=== PATIENT | male | born 1995 | race Caucasian/White ===

== ENCOUNTER 2020-04-23 11:10 | Inpatient (IN) | payer OTHER, SELFPAY ==
[~2020-04-23] VITALS: Ht 180.3 cm; Wt 90.7 kg
[2020-04-23 12:03] LABS: HEMATOCRIT 47.3 % (42.0-52.0); HEMOGLOBIN 15.2 g/dl (13.5-17.5); MEAN CORPUSCULAR HEMOGLOBIN 30.6 pg (27.0-33.0); MEAN CORPUSCULAR HGB CONC 32.1 g/dl (32.0-36.5); MEAN CORPUSCULAR VOLUME 95.2 fl (80.0-96.0); PLATELET COUNT, AUTOMATED 600 10^3/uL (150-450); RED BLOOD COUNT 4.97 10^6/uL (4.30-6.10); WHITE BLOOD COUNT 9.2 10^3/uL (4.0-10.0)
[2020-04-23 12:34] LABS: AMPHETAMINES LEVEL URINE NEGATIVE (NEGATIVE); BARBITURATES URINE NEGATIVE (NEGATIVE); BENZODIAZEPINES URINE NEGATIVE (NEGATIVE); CANNABINOIDS URINE NEGATIVE (NEGATIVE); COCAINE METABOLITE URINE NEGATIVE (NEGATIVE); METHADONE URINE NEGATIVE (NEGATIVE); OPIATES URINE NEGATIVE (NEGATIVE); PHENCYCLIDINE URINE NEGATIVE (NEGATIVE)
[2020-04-23 12:39] LABS: ACETAMINOPHEN LEVEL < 2.0 UG/ML (10.0-30.0); ALBUMIN 4.8 GM/DL (3.2-5.2); ALT/SGPT 122 U/L (12-78); BILIRUBIN,DIRECT 0.1 MG/DL (0.0-0.2); BILIRUBIN,TOTAL 0.4 MG/DL (0.2-1.0); BLOOD UREA NITROGEN 9 MG/DL (7-18); CARBON DIOXIDE LEVEL 29 MEQ/L (21-32); CHLORIDE LEVEL 103 MEQ/L (98-107); CREATININE FOR GFR 1.15 MG/DL (0.70-1.30); ETHYL ALCOHOL (ETHANOL) 0.289 % (0.000-0.010); GLOMERULAR FILTRATION RATE > 60.0 (>60); GLUCOSE, FASTING 77 MG/DL (70-100); POTASSIUM SERUM 4.5 MEQ/L (3.5-5.1); SALICYLATE LEVEL < 1.7 MG/DL (5.0-30.0); SODIUM LEVEL 140 MEQ/L (136-145); TOTAL PROTEIN 8.7 GM/DL (6.4-8.2)
[2020-04-23] MEDS ORDERED: BOOSTRIX/ADACEL VACCINE (DIPHTH/PERTUSS/ACELL/TETANUS) 0.5ML SYR IM ONE (12:45)
[2020-04-23] MEDS ORDERED: NICOTINE 21MG/24HR 1 EA TRANSDERMAL TD ONE (12:45)
[2020-04-23 21:35] LABS: RSV AMPLIFICATION NEGATIVE (NEGATIVE)
[2020-04-23] MEDS ORDERED: ACETAMINOPHEN TAB 650MG DOSE (2X325MG) PO PRN (22:00)
[2020-04-23] MEDS ORDERED: LORazepam 2 MG TAB PO PRN (22:00)
[2020-04-23] MEDS ORDERED: MOM 30ML SUSPENSION UDC PO PRN (22:00)
[2020-04-23] MEDS ORDERED: MAALOX 30 ML SUSP *UDC PO PRN (22:00)
[2020-04-23 22:43] VITALS: BP 134/77
[2020-04-23] MEDS: THIAMINE 100 MG TAB PO SCH (23:00)
[2020-04-24 06:00] VITALS: BP 143/83
[2020-04-24 06:23] VITALS: BP 143/83
[2020-04-24] MEDS: MULTIVITAMINS/MINERALS THERAP 1 TAB PO SCH (09:36)
[2020-04-24] MEDS: THIAMINE 100 MG TAB PO SCH ×2 (09:37→20:25)
[2020-04-24] MEDS: FOLIC ACID 1 MG TAB PO SCH (09:37)
--- NOTE | 2020-04-24 10:31 | MHHPEPDOC ---
General Date Of Admission: Apr 23, 2020 Legal Status: 9.39 Chief Complaint "I am so depressed. History of Present Illness HISTORY OF THE PRESENT ILLNESS: Patient is a 24 -year-old , male, who Presents to [facility] after cutting himself on the neck and cutting his wrists while intoxicated, the patient reports that he was quite depressed and dysthymic, he reports that he feels unsupported and became increasingly more desponded over the past several weeks. He reports having increasing difficulty with low mood, loss of interest and insomnia. He reports that he has been thinking about suicide for long before he became intoxicated.. Psychiatric Review of Systems Depression (2 or more weeks): depressed mood, anhedonia, feelings of wort hlesness, appetite changes Keila (4 or more days of): denies Psychosis: denies PTSD: denies Anxiety: situational anxiety, stressor related anxiety Anxiety/ 6 months or more of: irritability Past Psychiatric History Previous Psychiatric Diagnosis: Denies. Previous Psychiatric Admissions: Denies. Suicide Attempts: Reports that he attempted to overdose several years ago. Psychiatric Follow-up: Denies. Psychiatric medications: Denies. Past Medical History Medical Problems None significant Family Medical/Psychiatric HX Psychiatric Disorders: Yes (Depression) Addiction History nicotine, alcohol Social History Abuse/Trauma:Denies. Current Living Situation: Lives in the [facility]. Education: High school. Employment: [employer]. Social Support: Few. Legal: None noted. Marital: Unmarried. Mental Status Examination General Appearance: well groomed Build: average Eye Contact: avoidant, poor Activity: slowed Behavior: anhedonia Speech: slow, low in volume Mood: depressed Affect: constricted Thought Process: logical/linear Thought Content (Delusions): denies SI, HI, AVH Cognition(Intelligence Est.): average Oriented: Oriented times three Insight: poor Judgment: Poor Psychosis: Denies Assessment The patient a 24-year-old man with a very intense depression presents after becoming intoxicated and cutting himself, his symptoms are quite intense he said no history of treatment and thus low level SSRI treatment is indicated at this time, will likely need several days of treatment Problem List Problems: (1) Major depressive disorder, recurrent Status: Acute Response to Treatment: Uncontrolled Discussed With: Pt and Family Services, Patient Problem Text: Start sertraline 25 mg daily (2) Alcohol use with alcohol-induced mood disorder Status: Acute Response to Treatment: Uncontrolled Problem Text: [facility] protocol initiated Initial Treatment Plan 1. Patient was admitted on a [9.39] status. 2. Complete history was obtained. 3. With patients permission, family will be contacted and database will be expanded. 4. Patients medication regimen will be reviewed and changed accordingly. 5. Patient will be provided with protected environment. 6. Patient will be treated with individual, group, and milieu therapies. 7. Patient will receive supportive psych-education. 8. Discharge planning will commence immediately. 9. Outpatient follow-up treatment will be strongly recommended. 10. The initial treatment plan will focus initially on: * Depression. * Risk for suicide. * Substance use ESTIMATED LENGTH OF STAY: 2-4 DAYS. TIME SPENT COUNSELING AND COORDINATING INITIAL CARE: 30 minutes. Vital Signs Vital Signs Date Time Temp Pulse Resp B/P (MAP) Pulse Ox O2 Delivery O2 Flow Rate FiO2 04/24/20 06:23 96.8 84 18 143/83 (103) 97 Room Air Laboratory Data 24H Labs Laboratory Tests 2 04/23/20 11:34: Nucleated Red Blood Cells % (auto) 0.0, Anion Gap 8, Glomerular Filtration Rate > 60.0, Calcium Level 10.0, Total Bilirubin 0.4, Direct Bilirubin 0.1, Aspartate Amino Transf (AST/SGOT) 317H, Alanine Aminotransferase (ALT/SGPT) 122H, Alkaline Phosphatase 92, Total Protein 8.7H, Albumin 4.8, Albumin/Globulin Ratio 1.2, Thyroid Stimulating Hormone (TSH) 1.040, Salicylates Level < 1.7L, Urine Opiates Screen NEGATIVE, Urine Methadone Screen NEGATIVE, Acetaminophen Level < 2.0L, Urine Barbiturates Screen NEGATIVE, Urine Phencyclidine Screen NEGATIVE, Urine Amphetamines Screen NEGATIVE, Urine Benzodiazepines Screen NEGATIVE, Urine Cocaine Metabolite Screen NEGATIVE, Urine Cannabinoids Screen NEGATIVE, Ethyl Alcohol Level 0.289H 04/23/20 20:20: Coronavirus (COVID-19)(PCR) NEGATIVE, Influenza Type A (RT-PCR) NEGATIVE, Influenza Type B (RT-PCR) NEGATIVE, Respiratory Syncytial Virus (PCR) NEGATIVE CBC/BMP Laboratory Tests 04/23/20 11:34 Medications No Active Prescriptions or Reported Meds Allergies Coded Allergies: lactose (Verified Adverse Reaction, Mild, STOMACH PAIN, 04/23/20) gluten (Verified Adverse Reaction, Unknown, stomach pain, 04/23/20) JENNIFER CRUZ DO Apr 24, 2020 10:31
[2020-04-24] MEDS ORDERED: SERTRALINE HCL 25 MG TABLET PO ONE (12:00)
[2020-04-24 12:27] VITALS: BP 144/86
[2020-04-24] MEDS ORDERED: LORazepam 2 MG TAB PO ONE (14:00)
--- NOTE | 2020-04-24 14:13 | HPEPDOC ---
[facility] Medical History & Physical Date of Admission Apr 23, 2020 Date of Service: Apr 24, 2020 History and Physical CHIEF COMPLAINT: Depression HISTORY OF PRESENT ILLNESS: 24-year-old male with history of tobacco and alcohol abuse admitted to the inpatient mental health unit for severe depression. He complains of restlessness, increased anxiety and mild tremors requesting Ativan Elias protocol. He denies any nausea, vomiting, abdominal pain, hallucinations, or paresthesias. 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 6 pack of beer daily for the past year. No recreational drug use FAMILY HISTORY: Mother and father alive and well in their 50s. No medical problems ALLERGIES: Please see below. REVIEW OF SYSTEMS: Per HPI, 10 point system otherwise negative HOME MEDICATIONS: Please see below. PHYSICAL EXAMINATION: VITAL SIGNS: See below GENERAL APPEARANCE: No respiratory distress HEENT: Anicteric. No jaundice. Moist mucous membranes. Face is symmetric. Tongue is midline. No JVD, thyromegaly, reticulocyte bruit or cervical lymphadenopathy . No pharyngeal erythema CARDIOVASCULAR: S1, S2, sinus rhythm LUNGS: Clear to auscultation. Air entry is equal ABDOMEN: Positive bowel sounds, soft, nontender, nondistended. No hepatosplenomegaly EXTREMITIES: No cyanosis, clubbing or pitting edema LABORATORY DATA: See below. ASSESSMENT: 24-year-old male with history of tobacco and alcohol abuse admitted to the inpatient mental health unit for severe depression. He complains of restlessness, increased anxiety and mild tremors requesting Ativan Elias protocol. He denies any nausea, vomiting, abdominal pain, hallucinations, or paresthesias. 10 point review of systems otherwise negative , Depression . Cigarette abuse Alcohol abuse PLAN: Depression to be treated by primary team, multivitamin, thiamine, folate tobacco cessation counseling, alcohol cessation counseling nicotine patch [facility] protocol Hospitalist signing off. Please reconsult for acute medical issues Vital Signs Vital Signs Date Time Temp Pulse Resp B/P (MAP) Pulse Ox O2 Delivery O2 Flow Rate FiO2 04/24/20 12:27 98.5 86 16 144/86 (105) 99 Room Air Laboratory Data Labs 24H Laboratory Tests 2 04/23/20 20:20: Coronavirus (COVID-19)(PCR) NEGATIVE, Influenza Type A (RT-PCR) NEGATIVE, Influenza Type B (RT-PCR) NEGATIVE, Respiratory Syncytial Virus (PCR) NEGATIVE Home Medications No Active Prescriptions or Reported Meds Allergies Coded Allergies: lactose (Verified Adverse Reaction, Mild, STOMACH PAIN, 04/23/20) gluten (Verified Adverse Reaction, Unknown, stomach pain, 04/23/20) A-FIB/CHADSVASC A-FIB History Current/History of A-Fib/PAF?: No Current PO Anticoag Therapy: No Age/Risk Factor Scoring CHADSVASC: CHADSVASC Response (Comments) Value Age Risk Factor Age < 65 years old 0 Gender Risk Factor Male 0 Hx of CHF No 0 Hx of HTN No 0 Hx of Stroke/TIA/or VTE No 0 Hx of Diabetes No 0 Hx of Vascular Disease No 0 Total 0 Treatment Treatment ordered: NONE ALFONSO OSBORNE MD Apr 24, 2020 14:13
[2020-04-24] MEDS ORDERED: NICOTINE 21MG/24HR 1 EA TRANSDERMAL TD ONE (15:00)
[2020-04-24 16:42] VITALS: BP 127/78
[2020-04-24 17:37] VITALS: BP 127/78
[2020-04-24] MEDS: traZODone 50 MG TAB PO PRN (20:25)
[2020-04-25 06:19] VITALS: BP 114/68
[2020-04-25] MEDS: MULTIVITAMINS/MINERALS THERAP 1 TAB PO SCH (08:08)
[2020-04-25] MEDS: NICOTINE 21MG/24HR 1 EA TRANSDERMAL TD SCH (08:10)
[2020-04-25] MEDS: FOLIC ACID 1 MG TAB PO SCH (08:10)
[2020-04-25] MEDS: SERTRALINE HCL 25 MG TABLET PO SCH (08:11)
[2020-04-25] MEDS: THIAMINE 100 MG TAB PO SCH ×2 (08:11→20:26)
--- NOTE | 2020-04-25 09:27 | MHIPNPDOC ---
[facility] Progress Note Progress Note DATE OF SERVICE: 04/25/20 HISTORY: The patient is met with today, he spends the majority of his time in his room sleeping, he reports that he hasn't had much in way of side effects fr om his medications. He reports otherwise he is doing well without any major problems been some improvement in his depression. He reports he feels less dysthymic and more engaged today than he did when he first arrived.. VITAL SIGNS: See below. NEW TEST RESULTS: None. CURRENT MEDICATIONS: See below. MENTAL STATUS EXAMINATION: General: [Well dressed with good hygiene] Speech: [Spontaneous and fluid] Thought processes: [Linear and logical] Thought content: [Future orientated] Abstract reasoning, and computation: [Intact] Description of associations: [Intact] Description of abnormal or psychotic thoughts:[Denies any suicidal or homicidal ideation. Denies any auditory or visual hallucinations. Does not appear to be responding to internal stimuli. Does not appear to be endorsing any bizarre or paranoid ideation.] Judgment: [Fair] Insight: [Fair] Orientation: [Alert and orientated 3] Recent and remote memory: [Intact] Attention span and concentration: [Intact] Fund of knowledge: [Adequate] Mood: "Fine" Affect: Dysthymic constricted DIAGNOSES: 1. Major depressive disorder recurrent severe without psychotic symptoms. 2. Alcohol use disorder. ASSESSMENT: Making some improvement on low-dose SSRI will need to be retained over the holiday MANAGEMENT PLAN: Continue sertraline 25 mg daily and alcohol withdrawal protocol TIME SPENT: 15 minutes. Vital Signs Vital Signs Date Time Temp Pulse Resp B/P (MAP) Pulse Ox O2 Delivery O2 Flow Rate FiO2 04/25/20 08:34 Room Air 04/25/20 06:19 98.8 81 18 114/68 (50) 97 Current Medications Current Medications Medications (Trade) Dose Ordered Sig/Anna Route PRN Reason Start Time Stop Time Status Last Admin Dose Admin Acetaminophen (Tylenol Tab) 650 mg Q6HP PRN PO HEADACHE or DISCOMFORT 04/23/20 22:00 Al Hydrox/Mg Hydrox/Simethicone (Mylanta) 30 ml Q4HP PRN PO HEARTBURN/INDIGESTION 04/23/20 22:00 Folic Acid (Folic Acid) 1 mg DAILY PO 04/24/20 09:00 04/25/20 08:10 Home Med (Med Rec Complete!) ASDIRECTED XX 04/23/20 20:45 04/23/20 20:37 DC Lorazepam (Ativan) 2 mg ASDIRECTED PRN PO SEE PROTOCOL 04/23/20 22:00 04/23/20 23:00 Magnesium Hydroxide (Milk Of Magnesia) 30 ml DAILYPRN PRN PO CONSTIPATION 04/23/20 22:00 Multivitamins (Theragram-M) 1 tab DAILY PO 04/24/20 09:00 04/25/20 08:08 Nicotine (Nicoderm Cq 21mg) 1 patch DAILY TD 04/25/20 09:00 04/25/20 08:10 Sertraline HCl (Zoloft) 25 mg DAILY PO 04/25/20 09:00 04/25/20 08:11 Thiamine HCl (Thiamine HCl) 100 mg BID PO 04/23/20 21:00 04/26/20 09:01 04/25/20 08:11 Trazodone HCl (Desyrel) 50 mg QHSP PRN PO INSOMNIA 04/23/20 22:00 04/24/20 20:25 Allergies Coded Allergies: lactose (Verified Adverse Reaction, Mild, STOMACH PAIN, 04/23/20) gluten (Verified Adverse Reaction, Unknown, stomach pain, 04/23/20) JENNIFER CRUZ DO Apr 25, 2020 09:27
[2020-04-25 16:27] VITALS: BP 138/77
[2020-04-25 17:09] VITALS: BP 138/77
[2020-04-25] MEDS: traZODone 50 MG TAB PO PRN (20:26)
[2020-04-26 06:08] VITALS: BP 110/58
[2020-04-26] MEDS: MULTIVITAMINS/MINERALS THERAP 1 TAB PO SCH (09:45)
[2020-04-26] MEDS: FOLIC ACID 1 MG TAB PO SCH (09:45)
[2020-04-26] MEDS: NICOTINE 21MG/24HR 1 EA TRANSDERMAL TD SCH (09:45)
[2020-04-26] MEDS: THIAMINE 100 MG TAB PO SCH (09:46)
[2020-04-26] MEDS: SERTRALINE HCL 25 MG TABLET PO SCH (09:46)
--- NOTE | 2020-04-26 10:37 | MHIPNPDOC ---
[facility] Progress Note Progress Note DATE OF SERVICE: 04/26/20 HISTORY: The patient is met with today, he reports a mild headache but no other issues, reports that he's feeling less depressed and has some questions about the process of discharge. Reports that he is been attempting to read and engage but has little to do on the unit but is not feeling particularly depressed at this time. VITAL SIGNS: See below. NEW TEST RESULTS: None. CURRENT MEDICATIONS: See below. MENTAL STATUS EXAMINATION: General: [Well dressed with good hygiene] Speech: [Spontaneous and fluid] Thought processes: [Linear and logical] Thought content: [Future orientated] Abstract reasoning, and computation: [Intact] Description of associations: [Intact] Description of abnormal or psychotic thoughts:[Denies any suicidal or homicidal ideation. Denies any auditory or visual hallucinations. Does not appear to be responding to internal stimuli. Does not appear to be endorsing any bizarre or paranoid ideation.] Judgment: [Fair] Insight: [Fair] Orientation: [Alert and orientated 3] Recent and remote memory: [Intact] Attention span and concentration: [Intact] Fund of knowledge: [Adequate] Mood: "Fine" Affect: Improved DIAGNOSES: 1. Major depressive disorder recurrent severe without psychotic symptoms. 2. Alcohol use disorder. ASSESSMENT: Making some improvement on low-dose SSRI will need to be retained over the holiday MANAGEMENT PLAN: Continue sertraline 25 mg daily and alcohol withdrawal protocol TIME SPENT: 15 minutes. Vital Signs Vital Signs Date Time Temp Pulse Resp B/P (MAP) Pulse Ox O2 Delivery O2 Flow Rate FiO2 04/26/20 06:08 98.7 72 16 110/58 (75) 97 Room Air Current Medications Current Medications Medications (Trade) Dose Ordered Sig/Anna Route PRN Reason Start Time Stop Time Status Last Admin Dose Admin Acetaminophen (Tylenol Tab) 650 mg Q6HP PRN PO HEADACHE or DISCOMFORT 04/23/20 22:00 Al Hydrox/Mg Hydrox/Simethicone (Mylanta) 30 ml Q4HP PRN PO HEARTBURN/INDIGESTION 04/23/20 22:00 Folic Acid (Folic Acid) 1 mg DAILY PO 04/24/20 09:00 04/26/20 09:45 Home Med (Med Rec Complete!) ASDIRECTED XX 04/23/20 20:45 04/23/20 20:37 DC Lorazepam (Ativan) 2 mg ASDIRECTED PRN PO SEE PROTOCOL 04/23/20 22:00 04/23/20 23:00 Magnesium Hydroxide (Milk Of Magnesia) 30 ml DAILYPRN PRN PO CONSTIPATION 04/23/20 22:00 Multivitamins (Theragram-M) 1 tab DAILY PO 04/24/20 09:00 04/26/20 09:45 Nicotine (Nicoderm Cq 21mg) 1 patch DAILY TD 04/25/20 09:00 04/26/20 09:45 Sertraline HCl (Zoloft) 25 mg DAILY PO 04/25/20 09:00 04/26/20 09:46 Thiamine HCl (Thiamine HCl) 100 mg BID PO 04/23/20 21:00 04/26/20 09:01 DC 04/26/20 09:46 Trazodone HCl (Desyrel) 50 mg QHSP PRN PO INSOMNIA 04/23/20 22:00 04/25/20 20:26 Allergies Coded Allergies: lactose (Verified Adverse Reaction, Mild, STOMACH PAIN, 04/23/20) gluten (Verified Adverse Reaction, Unknown, stomach pain, 04/23/20) JENNIFER CRUZ DO Apr 26, 2020 10:37
[2020-04-26 17:08] VITALS: BP 134/71
[2020-04-27 06:32] VITALS: BP 130/60
[2020-04-27] MEDS: MULTIVITAMINS/MINERALS THERAP 1 TAB PO SCH (08:07)
[2020-04-27] MEDS: FOLIC ACID 1 MG TAB PO SCH (08:08)
[2020-04-27] MEDS: NICOTINE 21MG/24HR 1 EA TRANSDERMAL TD SCH (08:08)
[2020-04-27] MEDS: SERTRALINE HCL 25 MG TABLET PO SCH (08:09)
[2020-04-27 16:54] VITALS: BP 125/66
[2020-04-28 06:28] VITALS: BP 129/58
[2020-04-28] MEDS ORDERED: SERTRALINE HCL 50 MG TAB PO ONE (08:00)
[2020-04-28] MEDS: FOLIC ACID 1 MG TAB PO SCH (08:13)
[2020-04-28] MEDS: NICOTINE 21MG/24HR 1 EA TRANSDERMAL TD SCH (08:13)
[2020-04-28] MEDS: MULTIVITAMINS/MINERALS THERAP 1 TAB PO SCH (08:14)
--- NOTE | 2020-04-28 12:23 | IPN ---
PROGRESS NOTE DATE: 04/24/2020 VITAL SIGNS: Blood pressure 130/60, pulse 75, temperature 97.8. CHIEF COMPLAINT: Feels depressed. SUBJECTIVE: Seen for follow up. Indicates have been feeling depressed, stressed. Sleep has been somewhat difficult as well. Vague suicidal thoughts. 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 He says sometimes there are no stressors. He suggests that he gets depressed even when he is not using alcohol. Says has not had recurrent depression, does well, he is not sure what medicines he takes. Says mother had trouble with depression as well. Says not think that he sits well with being in the , says that is an added stressors. He is also concerned that his moods interfere with his job. MENTAL STATUS EXAMINATION: He is neat. He is generally cooperative, may be a bit guarded. He is coherent, there is no agitation. No psychomotor retardation, but appears depressed with restricted affect, voice which is somewhat low in tone. He denies any plans to harm himself, though he is a bit vague on suicidal thoughts. No homicidal ideas or intents. No evidence of any psychosis. Cognition grossly intact. Judgment and insight are quite questionable. ASSESSMENT: 1. Major depressive disorder, recurrent. Moderate to severe. 2. Alcohol use disorder. Has significant depressive episodes, recurrent. He very likely has a family history of depression as well. This adds to the concerns. The issues of alcohol complicates matters further. PLAN: I suggests increasing the sertraline to 50 mg daily. Encouraged to participate in activities in the unit. Obtain collateral information. He will be discharged with follow up at [place] when he is stable. Says has never been in formal treatment in the past. Will continue current observation. Further recommendations will be made depending on the clinical picture.
[2020-04-28 16:53] VITALS: BP 121/83
[2020-04-28 16:55] VITALS: BP 117/59
[2020-04-29 06:29] VITALS: BP 140/63
[2020-04-29] MEDS: FOLIC ACID 1 MG TAB PO SCH (09:09)
[2020-04-29] MEDS: MULTIVITAMINS/MINERALS THERAP 1 TAB PO SCH (09:14)
[2020-04-29] MEDS: NICOTINE 21MG/24HR 1 EA TRANSDERMAL TD SCH (09:14)
[2020-04-29 14:48] VITALS: BP 117/58
[2020-04-30] MEDS: traZODone 50 MG TAB PO PRN ×2 (01:01→23:05)
[2020-04-30 06:55] VITALS: BP 106/56
[2020-04-30] MEDS: NICOTINE 21MG/24HR 1 EA TRANSDERMAL TD SCH ×2 (09:00→11:41)
[2020-04-30] MEDS: MULTIVITAMINS/MINERALS THERAP 1 TAB PO SCH (09:19)
[2020-04-30] MEDS: FOLIC ACID 1 MG TAB PO SCH (09:20)
--- NOTE | 2020-04-30 10:18 | MHIPNPDOC ---
[facility] Progress Note Progress Note DATE OF SERVICE: 04/30/20 HISTORY: The patient is met with today with the internet media planner, he reports that he is doing "fine" he doesn't like the idea of staying longer to go to long -term treatment, however after some discussion he is open to staying another day to reconsider and to take stock with various people in his life than important. She reports that he feels the medications "okay" but hasn't engaged much in groups and generally is quite isolative. He still appears quite depressed but does not endorse any suicidal thoughts. VITAL SIGNS: See below. NEW TEST RESULTS: None. CURRENT MEDICATIONS: See below. MENTAL STATUS EXAMINATION: General: [Well dressed with good hygiene] Speech: [Spontaneous and fluid] Thought processes: [Linear and logical] Thought content: Some ambivalence Abstract reasoning, and computation: [Intact] Description of associations: [Intact] Description of abnormal or psychotic thoughts:[Denies any suicidal or homicidal ideation. Denies any auditory or visual hallucinations. Does not appear to be responding to internal stimuli. Does not appear to be endorsing any bizarre or paranoid ideation.] Judgment: [Fair] Insight: [Fair] Orientation: [Alert and orientated 3] Recent and remote memory: [Intact] Attention span and concentration: [Intact] Fund of knowledge: [Adequate] Mood: "Fine" Affect: Mildly dysthymic and constricted DIAGNOSES: 1. Major depressive disorder recurrent severe without psychotic symptoms. 2. Alcohol use disorder. ASSESSMENT: We'll give patient another evening to consider going to long-term, as he would benefit given his fairly severe depression and alcohol problems, hopefully him taking stock with various people in his life will help convince haile of the need. MANAGEMENT PLAN: Continue sertraline 25 mg daily and alcohol withdrawal protocol TIME SPENT: 15 minutes. Vital Signs Vital Signs Date Time Temp Pulse Resp B/P (MAP) Pulse Ox O2 Delivery O2 Flow Rate FiO2 04/30/20 06:55 96.8 83 16 106/56 (73) 97 Room Air Current Medications Current Medications Medications (Trade) Dose Ordered Sig/Anna Route PRN Reason Start Time Stop Time Status Last Admin Dose Admin Acetaminophen (Tylenol Tab) 650 mg Q6HP PRN PO HEADACHE or DISCOMFORT 04/23/20 22:00 04/26/20 17:08 Al Hydrox/Mg Hydrox/Simethicone (Mylanta) 30 ml Q4HP PRN PO HEARTBURN/INDIGESTION 04/23/20 22:00 Folic Acid (Folic Acid) 1 mg DAILY PO 04/24/20 09:00 04/30/20 09:20 Home Med (Med Rec Complete!) ASDIRECTED XX 04/23/20 20:45 04/23/20 20:37 DC Lorazepam (Ativan) 2 mg ASDIRECTED PRN PO SEE PROTOCOL 04/23/20 22:00 04/26/20 10:37 DC 04/23/20 23:00 Magnesium Hydroxide (Milk Of Magnesia) 30 ml DAILYPRN PRN PO CONSTIPATION 04/23/20 22:00 Multivitamins (Theragram-M) 1 tab DAILY PO 04/24/20 09:00 04/30/20 09:19 Nicotine (Nicoderm Cq 21mg) 1 patch DAILY TD 04/25/20 09:00 04/29/20 09:14 Sertraline HCl (Zoloft) 25 mg DAILY PO 04/25/20 09:00 04/27/20 12:18 DC 04/27/20 08:09 Thiamine HCl (Thiamine HCl) 100 mg BID PO 04/23/20 21:00 04/26/20 09:01 DC 04/26/20 09:46 Trazodone HCl (Desyrel) 50 mg QHSP PRN PO INSOMNIA 04/23/20 22:00 04/30/20 01:01 Allergies Coded Allergies: lactose (Verified Adverse Reaction, Mild, STOMACH PAIN, 04/23/20) gluten (Verified Adverse Reaction, Unknown, stomach pain, 04/23/20) JENNIFER CRUZ DO Apr 30, 2020 10:18
[2020-04-30 18:02] VITALS: BP 142/70
[2020-05-01 06:27] VITALS: BP 144/67
[2020-05-01] MEDS: MULTIVITAMINS/MINERALS THERAP 1 TAB PO SCH (08:07)
[2020-05-01] MEDS: NICOTINE 21MG/24HR 1 EA TRANSDERMAL TD SCH (08:08)
[2020-05-01] MEDS: FOLIC ACID 1 MG TAB PO SCH (08:08)
--- NOTE | 2020-05-01 10:26 | MHDSPDOC ---
[facility] Discharge Summary Discharge Summary DATE OF ADMISSION: Apr 23, 2020 at 21:56 DATE OF DISCHARGE: DISCHARGE DIAGNOSES: 1. . 2. . REASON FOR ADMISSION: CONSULTANTS INVOLVED: TREATMENT AND PROGRESS ON THE UNIT : . HOSPITAL COURSE: DISCHARGE ASSESSMENT: MENTAL STATUS EXAMINATION ON DISCHARGE: Patient is a -year old male, who is . Speech is . Language skills are . Thought processes including: . Thought content: . Abstract reasoning, and computation: . Description of associations: . Description of abnormal or psychotic thoughts: . Judgment: . Insight: . Orientation to . Recent and remote memory: . Attention span and concentration: . Language: . Fund of knowledge: . Mood: . Affect: . MEDICATIONS ON DISCHARGE: - for . - for . - for . PLAN/FOLLOWUP ARRANGEMENTS: . The amount of time spent in the coordination of care for this patient was approximately minutes. Vital Signs/I&Os Vital Signs Date Time Temp Pulse Resp B/P (MAP) Pulse Ox O2 Delivery O2 Flow Rate FiO2 05/01/20 06:27 96.9 74 16 144/67 (92) 98 Room Air Medications No Active Prescriptions or Reported Meds Allergies Coded Allergies: lactose (Verified Adverse Reaction, Mild, STOMACH PAIN, 04/23/20) gluten (Verified Adverse Reaction, Unknown, stomach pain, 04/23/20) JENNIFER CRUZ DO May 01, 2020 10:26
--- NOTE | 2020-05-01 12:33 | MHIPNPDOC ---
[facility] Progress Note Progress Note DATE OF SERVICE: 05/01/20 HISTORY: The patient is met with today, he reports he is doing well has decided to stay for long-term, feeling that it is useful and appropriate to do so. He reports that her talking to his mother he felt improved and that he should engage more mental health feeling that it was a good idea to take advantage of helpful and he added that she senses is the first time he has been offered help. He has no other complaints and has been going to groups in engaging more.. VITAL SIGNS: See below. NEW TEST RESULTS: None. CURRENT MEDICATIONS: See below. MENTAL STATUS EXAMINATION: General: Well dressed with good hygiene Speech: Spontaneous and fluid Thought processes: Linear and logical Thought content: Future orientated Abstract reasoning, and computation: Intact Description of associations: Intact Description of abnormal or psychotic thoughts:Denies any suicidal or homicidal ideation. Denies any auditory or visual hallucinations. Does not appear to be responding to internal stimuli. Does not appear to be endorsing any bizarre or paranoid ideation. Judgment: Fair Insight: Fair Orientation: Alert and orientated 3 Recent and remote memory: Intact Attention span and concentration: Intact Fund of knowledge: Adequate Mood: "Okay" Affect: Improved DIAGNOSES: 1. MDD, recurrent, severe. 2. Alcohol use disorder. 3. . ASSESSMENT: We'll triaged to long-term treatment at this time MANAGEMENT PLAN: Zoloft 25 mg daily, there was an attempted increase over the weekend, however he was doing well on the 25 will refer to 25 at patient request. TIME SPENT: 15 minutes. Vital Signs Vital Signs Date Time Temp Pulse Resp B/P (MAP) Pulse Ox O2 Delivery O2 Flow Rate FiO2 05/01/20 06:27 96.9 74 16 144/67 (92) 98 Room Air Current Medications Current Medications Medications (Trade) Dose Ordered Sig/Anna Route PRN Reason Start Time Stop Time Status Last Admin Dose Admin Acetaminophen (Tylenol Tab) 650 mg Q6HP PRN PO HEADACHE or DISCOMFORT 04/23/20 22:00 04/26/20 17:08 Al Hydrox/Mg Hydrox/Simethicone (Mylanta) 30 ml Q4HP PRN PO HEARTBURN/INDIGESTION 04/23/20 22:00 Folic Acid (Folic Acid) 1 mg DAILY PO 04/24/20 09:00 05/01/20 08:08 Home Med (Med Rec Complete!) ASDIRECTED XX 04/23/20 20:45 04/23/20 20:37 DC Lorazepam (Ativan) 2 mg ASDIRECTED PRN PO SEE PROTOCOL 04/23/20 22:00 04/26/20 10:37 DC 04/23/20 23:00 Magnesium Hydroxide (Milk Of Magnesia) 30 ml DAILYPRN PRN PO CONSTIPATION 04/23/20 22:00 Multivitamins (Theragram-M) 1 tab DAILY PO 04/24/20 09:00 05/01/20 08:07 Nicotine (Nicoderm Cq 21mg) 1 patch DAILY TD 04/25/20 09:00 05/01/20 08:08 Sertraline HCl (Zoloft) 25 mg DAILY PO 04/25/20 09:00 04/27/20 12:18 DC 04/27/20 08:09 Thiamine HCl (Thiamine HCl) 100 mg BID PO 04/23/20 21:00 04/26/20 09:01 DC 04/26/20 09:46 Trazodone HCl (Desyrel) 50 mg QHSP PRN PO INSOMNIA 04/23/20 22:00 04/30/20 23:05 Allergies Coded Allergies: lactose (Verified Adverse Reaction, Mild, STOMACH PAIN, 04/23/20) gluten (Verified Adverse Reaction, Unknown, stomach pain, 04/23/20) JENNIFER CRUZ DO May 01, 2020 12:32
[2020-05-01] MEDS: SERTRALINE HCL 25 MG TABLET PO SCH (13:45)
[2020-05-01 18:00] VITALS: BP 139/85
[2020-05-02 05:57] VITALS: BP 104/57
[2020-05-02] MEDS: MULTIVITAMINS/MINERALS THERAP 1 TAB PO SCH (08:29)
[2020-05-02] MEDS: SERTRALINE HCL 25 MG TABLET PO SCH (08:30)
[2020-05-02] MEDS: FOLIC ACID 1 MG TAB PO SCH (08:30)
[2020-05-02] MEDS: NICOTINE 21MG/24HR 1 EA TRANSDERMAL TD SCH (08:30)
--- NOTE | 2020-05-02 11:33 | MHIPNPDOC ---
[facility] Progress Note Progress Note DATE OF SERVICE: 05/02/20 HISTORY: The patient is met with today, he reports that he is doing well and making some progress, is interested in details relating to long-term care. He reports he doesn't have any side effects from Zoloft and is making more engagement on the unit and going to groups more frequently, he feels like he is making progress. VITAL SIGNS: See below. NEW TEST RESULTS: None. CURRENT MEDICATIONS: See below. MENTAL STATUS EXAMINATION: General: Well dressed with good hygiene Speech: Spontaneous and fluid Thought processes: Linear and logical Thought content: Future orientated Abstract reasoning, and computation: Intact Description of associations: Intact Description of abnormal or psychotic thoughts:Denies any suicidal or homicidal ideation. Denies any auditory or visual hallucinations. Does not appear to be responding to internal stimuli. Does not appear to be endorsing any bizarre or paranoid ideation. Judgment: Fair Insight: Fair Orientation: Alert and orientated 3 Recent and remote memory: Intact Attention span and concentration: Intact Fund of knowledge: Adequate Mood: "Okay" Affect: Improved DIAGNOSES: 1. MDD, recurrent, severe. 2. Alcohol use disorder. 3. . ASSESSMENT: Continue with referral for long-term MANAGEMENT PLAN: Zoloft 25 mg daily, to be continued TIME SPENT: 15 minutes. Vital Signs Vital Signs Date Time Temp Pulse Resp B/P (MAP) Pulse Ox O2 Delivery O2 Flow Rate FiO2 05/02/20 05:57 99.0 83 16 104/57 (73) 98 Room Air Current Medications Current Medications Medications (Trade) Dose Ordered Sig/Anna Route PRN Reason Start Time Stop Time Status Last Admin Dose Admin Acetaminophen (Tylenol Tab) 650 mg Q6HP PRN PO HEADACHE or DISCOMFORT 04/23/20 22:00 04/26/20 17:08 Al Hydrox/Mg Hydrox/Simethicone (Mylanta) 30 ml Q4HP PRN PO HEARTBURN/INDIGESTION 04/23/20 22:00 Folic Acid (Folic Acid) 1 mg DAILY PO 04/24/20 09:00 05/02/20 08:30 Home Med (Med Rec Complete!) ASDIRECTED XX 04/23/20 20:45 04/23/20 20:37 DC Lorazepam (Ativan) 2 mg ASDIRECTED PRN PO SEE PROTOCOL 04/23/20 22:00 04/26/20 10:37 DC 04/23/20 23:00 Magnesium Hydroxide (Milk Of Magnesia) 30 ml DAILYPRN PRN PO CONSTIPATION 04/23/20 22:00 Multivitamins (Theragram-M) 1 tab DAILY PO 04/24/20 09:00 05/02/20 08:29 Nicotine (Nicoderm Cq 21mg) 1 patch DAILY TD 04/25/20 09:00 05/02/20 08:30 Sertraline HCl (Zoloft) 25 mg DAILY PO 04/25/20 09:00 04/27/20 12:18 DC 04/27/20 08:09 Sertraline HCl (Zoloft) 25 mg DAILY PO 05/01/20 09:00 05/02/20 08:30 Thiamine HCl (Thiamine HCl) 100 mg BID PO 04/23/20 21:00 04/26/20 09:01 DC 04/26/20 09:46 Trazodone HCl (Desyrel) 50 mg QHSP PRN PO INSOMNIA 04/23/20 22:00 04/30/20 23:05 Allergies Coded Allergies: lactose (Verified Adverse Reaction, Mild, STOMACH PAIN, 04/23/20) gluten (Verified Adverse Reaction, Unknown, stomach pain, 04/23/20) JENNIFER CRUZ DO May 02, 2020 11:33
[2020-05-02 18:06] VITALS: BP 142/84
[2020-05-03 05:49] VITALS: BP 120/67
[2020-05-03] MEDS: SERTRALINE HCL 25 MG TABLET PO SCH (09:11)
[2020-05-03] MEDS: FOLIC ACID 1 MG TAB PO SCH (09:11)
[2020-05-03] MEDS: MULTIVITAMINS/MINERALS THERAP 1 TAB PO SCH (09:11)
[2020-05-03] MEDS: NICOTINE 21MG/24HR 1 EA TRANSDERMAL TD SCH (09:11)
--- NOTE | 2020-05-03 10:56 | MHIPNPDOC ---
[facility] Progress Note Progress Note DATE OF SERVICE: 05/03/20 HISTORY: The patient is met with today, he reports he is doing well he is tolerating the medication without any side effects. He reports he has been going to groups getting progress and improving on his depression anxiety. He reports that he is in no degroot to get to long-term and reports that he is willing to take the time needed to recover VITAL SIGNS: See below. NEW TEST RESULTS: None. CURRENT MEDICATIONS: See below. MENTAL STATUS EXAMINATION: General: Well dressed with good hygiene Speech: Spontaneous and fluid Thought processes: Linear and logical Thought content: Future orientated Abstract reasoning, and computation: Intact Description of associations: Intact Description of abnormal or psychotic thoughts:Denies any suicidal or homicidal ideation. Denies any auditory or visual hallucinations. Does not appear to be responding to internal stimuli. Does not appear to be endorsing any bizarre or paranoid ideation. Judgment: Fair Insight: Fair Orientation: Alert and orientated 3 Recent and remote memory: Intact Attention span and concentration: Intact Fund of knowledge: Adequate Mood: "Okay" Affect: Improved DIAGNOSES: 1. MDD, recurrent, severe. 2. Alcohol use disorder. ASSESSMENT: Continue with referral for long-term MANAGEMENT PLAN: Zoloft 25 mg daily, to be continued TIME SPENT: 15 minutes. Vital Signs Vital Signs Date Time Temp Pulse Resp B/P (MAP) Pulse Ox O2 Delivery O2 Flow Rate FiO2 05/03/20 05:49 97.3 86 16 120/67 (84) 99 Room Air Current Medications Current Medications Medications (Trade) Dose Ordered Sig/Anna Route PRN Reason Start Time Stop Time Status Last Admin Dose Admin Acetaminophen (Tylenol Tab) 650 mg Q6HP PRN PO HEADACHE or DISCOMFORT 04/23/20 22:00 04/26/20 17:08 Al Hydrox/Mg Hydrox/Simethicone (Mylanta) 30 ml Q4HP PRN PO HEARTBURN/INDIGESTION 04/23/20 22:00 Folic Acid (Folic Acid) 1 mg DAILY PO 04/24/20 09:00 05/03/20 09:11 Home Med (Med Rec Complete!) ASDIRECTED XX 04/23/20 20:45 04/23/20 20:37 DC Lorazepam (Ativan) 2 mg ASDIRECTED PRN PO SEE PROTOCOL 04/23/20 22:00 04/26/20 10:37 DC 04/23/20 23:00 Magnesium Hydroxide (Milk Of Magnesia) 30 ml DAILYPRN PRN PO CONSTIPATION 04/23/20 22:00 Multivitamins (Theragram-M) 1 tab DAILY PO 04/24/20 09:00 05/03/20 09:11 Nicotine (Nicoderm Cq 21mg) 1 patch DAILY TD 04/25/20 09:00 05/03/20 09:11 Sertraline HCl (Zoloft) 25 mg DAILY PO 04/25/20 09:00 04/27/20 12:18 DC 04/27/20 08:09 Sertraline HCl (Zoloft) 25 mg DAILY PO 05/01/20 09:00 05/03/20 09:11 Thiamine HCl (Thiamine HCl) 100 mg BID PO 04/23/20 21:00 04/26/20 09:01 DC 04/26/20 09:46 Trazodone HCl (Desyrel) 50 mg QHSP PRN PO INSOMNIA 04/23/20 22:00 04/30/20 23:05 Allergies Coded Allergies: lactose (Verified Adverse Reaction, Mild, STOMACH PAIN, 04/23/20) gluten (Verified Adverse Reaction, Unknown, stomach pain, 04/23/20) JENNIFER CRUZ DO May 03, 2020 10:56
[2020-05-03 17:30] VITALS: BP 137/58
[2020-05-04 06:35] VITALS: BP 145/65
[2020-05-04] MEDS: MULTIVITAMINS/MINERALS THERAP 1 TAB PO SCH (09:19)
[2020-05-04] MEDS: SERTRALINE HCL 25 MG TABLET PO SCH (09:19)
[2020-05-04] MEDS: FOLIC ACID 1 MG TAB PO SCH (09:19)
[2020-05-04] MEDS: NICOTINE 21MG/24HR 1 EA TRANSDERMAL TD SCH (09:19)
[2020-05-05] MEDS: traZODone 50 MG TAB PO PRN
[2020-05-05] MEDS: FOLIC ACID 1 MG TAB PO SCH ×2 (09:54→09:56)
[2020-05-05] MEDS: SERTRALINE HCL 25 MG TABLET PO SCH (09:54)
[2020-05-05] MEDS: NICOTINE 21MG/24HR 1 EA TRANSDERMAL TD SCH (09:54)
[2020-05-05] MEDS: MULTIVITAMINS/MINERALS THERAP 1 TAB PO SCH (09:56)
[2020-05-05 18:00] VITALS: BP 112/90
[2020-05-06] MEDS: MULTIVITAMINS/MINERALS THERAP 1 TAB PO SCH (08:01)
[2020-05-06] MEDS: NICOTINE 21MG/24HR 1 EA TRANSDERMAL TD SCH (08:03)
[2020-05-06] MEDS: SERTRALINE HCL 25 MG TABLET PO SCH (08:03)
[2020-05-06 17:37] VITALS: BP 147/74
[2020-05-07 06:13] VITALS: BP 130/59
[2020-05-07] MEDS: MULTIVITAMINS/MINERALS THERAP 1 TAB PO SCH (08:52)
[2020-05-07] MEDS: NICOTINE 21MG/24HR 1 EA TRANSDERMAL TD SCH (08:53)
[2020-05-07] MEDS: FOLIC ACID 1 MG TAB PO SCH (08:54)
[2020-05-07] MEDS: SERTRALINE HCL 25 MG TABLET PO SCH (08:54)
[2020-05-07 17:53] VITALS: BP 139/74
[2020-05-08 06:10] VITALS: BP 127/69
[2020-05-08] MEDS: FOLIC ACID 1 MG TAB PO SCH (09:05)
[2020-05-08] MEDS: SERTRALINE HCL 25 MG TABLET PO SCH (09:05)
[2020-05-08] MEDS: MULTIVITAMINS/MINERALS THERAP 1 TAB PO SCH (09:06)
[2020-05-08] MEDS: NICOTINE 21MG/24HR 1 EA TRANSDERMAL TD SCH (09:06)
[2020-05-08 15:39] VITALS: BP 140/69
[2020-05-09 06:36] VITALS: BP 130/62
[2020-05-09] MEDS: SERTRALINE HCL 25 MG TABLET PO SCH (09:37)
[2020-05-09] MEDS: FOLIC ACID 1 MG TAB PO SCH (09:37)
[2020-05-09] MEDS: MULTIVITAMINS/MINERALS THERAP 1 TAB PO SCH (09:38)
[2020-05-09] MEDS: NICOTINE 21MG/24HR 1 EA TRANSDERMAL TD SCH (09:38)
--- NOTE | 2020-05-09 16:20 | MHIPNPDOC ---
[facility] Progress Note Progress Note DATE OF SERVICE: 05/09/20 CHIEF COMPLAINT: "I'm not happy" HISTORY: This is a 24-year-old male who was was admitted through the emergency room for allegation of suicide. Patient reported that he has been struggling with depressed mood, feeling down in the drain. SUBJECTIVE Patient was invited to his meeting. He accepted. Met with patient along with his social sciences research scientist. Chart was reviewed. Patient denies auditory and visual hallucination. He denies suicidal and homicidal ideations. Patient reports that he has been on the following medications: Folic acid 1 mg by mouth daily. Multivitamins 1 tablet by mouth daily. Sertraline 25 mg by mouth daily. Trazodone 50 mg by mouth at bedtime. Patient denies having any side effects from those medications. There is no tic. No tremors. No tardive dyskinesia. OBJECTIVE: VITAL SIGNS: See below. NEW TEST RESULTS: See below. CURRENT MEDICATIONS: See below. MENTAL STATUS EXAMINATION: Patient is a 24-year old male, who looks his stated age. He is casually dressed with hospital attire with good hygiene. Speech: Is clear, not pressured with normal tone and volume. Patient makes good eye contact. Motor activity: No Psychomotor agitation. No psychomotor retardation. Thought processes : Linear, logical and goal oriented. Thought content: Appropriate . Perceptions: Denies auditory and visual hallucinations. Denied persecutory delusions. Judgment: Is sound. Insight: Fair. Orientation: Oriented to time, place, person and situation. Immediate recall, Recent and remote memory: are grossly intact. Attention span is good and concentration: is normal. Fund of knowledge: Average by educational attainment. Mood: Is said to be "okay.". Affect: Appropriate and is mood congruent. Assessment and Plan: Assess 24-year-old Male with Long Signs and Symptoms of depressive disorder, consistent with major depressive disorder in partial remission. DIAGNOSES: 1. Major depressive disorder in partial remission. 2. Personality disorder NOS . 3. Alcohol abuse, moderate to severe. TREATMENT PLAN: Continue same medications: Folic acid 1 mg by mouth daily. Multivitamins 1 tablet by mouth daily. Sertraline 25 mg by mouth daily. Trazodone 50 mg by mouth at bedtime TIME SPENT: 30 minutes minutes. Vital Signs Vital Signs Date Time Temp Pulse Resp B/P (MAP) Pulse Ox O2 Delivery O2 Flow Rate FiO2 1/6/21 11:10 Room Air 05/09/20 06:36 98.0 92 16 130/62 (84) 98 Laboratory Data 24H Labs Item Value Date Time White Blood Count 9.2 10^3/uL 04/23/20 1134 Nucleated Red Blood Cells % (auto) 0.0 % 04/23/20 1134 Red Cell Distribution Width 12.4 % 04/23/20 1134 Mean Corpuscular Hemoglobin Concent 32.1 g/dl 04/23/20 1134 Mean Corpuscular Volume 95.2 fl 04/23/20 1134 Hematocrit 47.3 % 04/23/20 1134 Hemoglobin 15.2 g/dl 04/23/20 1134 Red Blood Count 4.97 10^6/uL 04/23/20 1134 Platelet Count 600 10^3/uL H 04/23/20 1134 Mean Corpuscular Hemoglobin 30.6 pg 04/23/20 1134 Sodium Level 140 MEQ/L 04/23/20 1134 Potassium Level 4.5 MEQ/L 04/23/20 1134 Chloride Level 103 MEQ/L 04/23/20 1134 Carbon Dioxide Level 29 MEQ/L 04/23/20 1134 Anion Gap 8 MEQ/L 04/23/20 1134 Blood Urea Nitrogen 9 MG/DL 04/23/20 1134 Creatinine 1.15 MG/DL 04/23/20 1134 Glomerular Filtration Rate > 60.0 04/23/20 1134 Total Bilirubin 0.4 MG/DL 04/23/20 1134 Fasting Glucose 77 MG/DL 04/23/20 1134 Calcium Level 10.0 MG/DL 04/23/20 1134 Direct Bilirubin 0.1 MG/DL 04/23/20 1134 Aspartate Amino Transf (AST/SGOT) 317 U/L H 04/23/20 1134 Alanine Aminotransferase (ALT/SGPT) 122 U/L H 04/23/20 1134 Alkaline Phosphatase 92 U/L 04/23/20 1134 Total Protein 8.7 GM/DL H 04/23/20 1134 Albumin 4.8 GM/DL 04/23/20 1134 Albumin/Globulin Ratio 1.2 04/23/20 1134 Thyroid Stimulating Hormone (TSH) 1.040 uIU/ML 04/23/20 1134 Urine Opiates Screen NEGATIVE 04/23/20 1134 Acetaminophen Level < 2.0 UG/ML L 04/23/20 1134 Salicylates Level < 1.7 MG/DL L 04/23/20 1134 Ethyl Alcohol Level 0.289 % H 04/23/20 1134 Urine Methadone Screen NEGATIVE 04/23/20 1134 Urine Barbiturates Screen NEGATIVE 04/23/20 1134 Urine Phencyclidine Screen NEGATIVE 04/23/20 1134 Urine Amphetamines Screen NEGATIVE 04/23/20 1134 Urine Benzodiazepines Screen NEGATIVE 04/23/20 1134 Urine Cocaine Metabolite Screen NEGATIVE 04/23/20 113 Urine Cannabinoids Screen NEGATIVE 04/23/201133 Coronavirus (COVID-19)(PCR) NEGATIVE 04/23/202019 Influenza Type A (RT-PCR) NEGATIVE 04/23/202019 Influenza Type B (RT-PCR) NEGATIVE 04/23/202019 Respiratory Syncytial Virus (PCR) NEGATIVE 04/23/202019 Current Medications Current Medications Medications (Trade) Dose Ordered Sig/Anna Route PRN Reason Start Time Stop Time Status Last Admin Dose Admin Acetaminophen (Tylenol Tab) 650 mg Q6HP PRN PO HEADACHE or DISCOMFORT 04/23/20 22:00 04/26/20 17:08 Al Hydrox/Mg Hydrox/Simethicone (Mylanta) 30 ml Q4HP PRN PO HEARTBURN/INDIGESTION 04/23/20 22:00 Folic Acid (Folic Acid) 1 mg DAILY PO 04/24/20 09:00 05/09/20 09:37 Home Med (Med Rec Complete!) ASDIRECTED XX 04/23/20 20:45 04/23/20 20:37 DC Lorazepam (Ativan) 2 mg ASDIRECTED PRN PO SEE PROTOCOL 04/23/20 22:00 04/26/20 10:37 DC 04/23/20 23:00 Magnesium Hydroxide (Milk Of Magnesia) 30 ml DAILYPRN PRN PO CONSTIPATION 04/23/20 22:00 Multivitamins (Theragram-M) 1 tab DAILY PO 04/24/20 09:00 05/09/20 09:38 Nicotine (Nicoderm Cq 21mg) 1 patch DAILY TD 04/25/20 09:00 05/09/20 09:38 Sertraline HCl (Zoloft) 25 mg DAILY PO 04/25/20 09:00 04/27/20 12:18 DC 04/27/20 08:09 Sertraline HCl (Zoloft) 25 mg DAILY PO 05/01/20 09:00 05/09/20 09:37 Thiamine HCl (Thiamine HCl) 100 mg BID PO 04/23/20 21:00 04/26/20 09:01 DC 04/26/20 09:46 Trazodone HCl (Desyrel) 50 mg QHSP PRN PO INSOMNIA 04/23/20 22:00 05/05/20 00:00 Allergies Coded Allergies: lactose (Verified Adverse Reaction, Mild, STOMACH PAIN, 04/23/20) gluten (Verified Adverse Reaction, Unknown, stomach pain, 04/23/20) ALISON DIXON MD May 09, 2020 16:20
--- NOTE | 2020-05-09 17:47 | MHDSPDOC ---
[facility] Discharge Summary Discharge Summary . DATE OF DISCHARGE: 05/10/2020 DISCHARGE DIAGNOSES: 1. Mood disorder induced by alcohol abuse and intoxication, moderate to severe. 2. Personality disorder NOS. REASON FOR ADMISSION: Patient became intoxicated with alcohol and cut His neck and both wrists superficially after he was served with [employer] in the [employer]. He became upset for the harsh punishment and reacted with suicidal gesture. CONSULTANTS INVOLVED: Drs. Greenfield and Angelica. TREATMENT AND PROGRESS ON THE UNIT : While patient was in the unit. He received treatment for his Chronic alcoholism. He was cooperative, participating in his treatment modalities. He did not have any behavioral issues and was monitored closely for any signs and symptoms of delirium or psychosis. HOSPITAL COURSE: While patient was in the hospital, he has participated in therapy and other activities offered to him such as coping skills. His liver enzymes were elevated and do reserves were discussed with him so that he can understand the severity of his condition. He acknowledges understanding. And is motivated to seek further treatment. He has received support from the . MENTAL STATUS EXAMINATION: Patient is a 24-year old male, who looks his stated age. He is casually dressed with hospital attire with good hygiene. Speech: Is clear, not pressured with normal tone and volume. Patient makes good eye contact. Motor activity: No Psychomotor agitation. No psychomotor retardation. Thought processes : Linear, logical and goal oriented. Thought content: Appropriate . Perceptions: Denies auditory and visual hallucinations. Denied persecutory delusions. Judgment: Is sound. Insight: Fair. Orientation: Oriented to time, place, person and situation. Immediate recall, Recent and remote memory: are grossly intact. Attention span is good and concentration: is normal. Fund of knowledge: Average by educational attainment. Mood: Is said to be "okay.". Affect: Appropriate and is mood congruent. Assessment and Plan: Assess 24-year-old Male with Long Signs and Symptoms of depressive disorder, consistent with major depressive disorder in partial remission. Major depressive disorder secondary to alcohol abuse induced mood disorder, mo derate to severe. DIAGNOSES: 1. Major depressive disorder in partial remission. 2. Personality disorder NOS . 3. Alcohol abuse, moderate to severe. TREATMENT PLAN: Continue same medications: Folic acid 1 mg by mouth daily. Multivitamins 1 tablet by mouth daily. Sertraline 25 mg by mouth daily. Trazodone 50 mg by mouth at bedtime DISCHARGE ASSESSMENT: Patient does not present as a danger to himself or to orders at the present time. He will be picked up by his sergeant in will be traveling to another [facility] for further treatment of alcohol. PLAN/FOLLOWUP ARRANGEMENTS: Have been made by the . The amount of time spent in the coordination of care for this patient was approximately 45 minutes. Vital Signs/I&Os Vital Signs Date Time Temp Pulse Resp B/P (MAP) Pulse Ox O2 Delivery O2 Flow Rate FiO2 05/09/20 11:10 Room Air 05/09/20 06:36 98.0 92 16 130/62 (84) 98 Medications No Active Prescriptions or Reported Meds Allergies Coded Allergies: lactose (Verified Adverse Reaction, Mild, STOMACH PAIN, 04/23/20) gluten (Verified Adverse Reaction, Unknown, stomach pain, 04/23/20) ALISON DIXON MD May 09, 2020 17:47
== END 2020-05-10 01:55 | disposition home or self-care (01) | DRG 881 ==
LOC: M ED 11:10 → M ED INP 21:56 → M PSY 22:22
PROVIDERS: ADMIT Psychiatry & Neurology Psychiatry; ATTEND Pediatrics
DX: F32.9 Major depressive disorder, single episode, unspecified (principal); K90.41 Non-celiac gluten sensitivity; F10.10 Alcohol abuse, uncomplicated; F60.9 Personality disorder, unspecified; F17.210 Nicotine dependence, cigarettes, uncomplicated; E73.9 Lactose intolerance, unspecified

== ENCOUNTER 2020-08-02 09:17 | Emergency (ER) | payer OTHER ==
[~2020-08-02] VITALS: Ht 182.9 cm; Wt 97.4 kg
[2020-08-02] MEDS ORDERED: FLUO20CA22 PO (09:31)
[2020-08-02] MEDS ORDERED: NALT50TA4 PO (09:31)
[2020-08-02] MEDS ORDERED: TRAZ-252 PO (09:31)
[2020-08-02] MEDS ORDERED: PRAZ2CAP PO (09:31)
[2020-08-02 10:20] LABS: HEMOGLOBIN 14.5 g/dl (13.5-17.5); MEAN CORPUSCULAR HEMOGLOBIN 31.3 pg (27.0-33.0); MEAN CORPUSCULAR VOLUME 94.8 fl (80.0-96.0); PLATELET COUNT, AUTOMATED 362 10^3/uL (150-450); RED BLOOD COUNT 4.64 10^6/uL (4.30-6.10); WHITE BLOOD COUNT 6.3 10^3/uL (4.0-10.0)
[2020-08-02 10:54] LABS: AMPHETAMINES LEVEL URINE NEGATIVE (NEGATIVE); BARBITURATES URINE NEGATIVE (NEGATIVE); BENZODIAZEPINES URINE NEGATIVE (NEGATIVE); CANNABINOIDS URINE NEGATIVE (NEGATIVE); COCAINE METABOLITE URINE NEGATIVE (NEGATIVE); METHADONE URINE NEGATIVE (NEGATIVE); OPIATES URINE NEGATIVE (NEGATIVE); PHENCYCLIDINE URINE NEGATIVE (NEGATIVE)
[2020-08-02 11:48] LABS: ACETAMINOPHEN LEVEL < 2.0 UG/ML (10.0-30.0); ALBUMIN 3.6 GM/DL (3.2-5.2); ALT/SGPT 24 U/L (12-78); BILIRUBIN,DIRECT 0.2 MG/DL (0.0-0.2); BILIRUBIN,TOTAL 0.5 MG/DL (0.2-1.0); BLOOD UREA NITROGEN 14 MG/DL (7-18); CALCIUM LEVEL 9.1 MG/DL (8.5-10.1); CARBON DIOXIDE LEVEL 27 MEQ/L (21-32); CHLORIDE LEVEL 105 MEQ/L (98-107); CREATININE FOR GFR 0.78 MG/DL (0.70-1.30); ETHYL ALCOHOL (ETHANOL) 0.003 % (0.000-0.010); GLOMERULAR FILTRATION RATE > 60.0 (>60); GLUCOSE, FASTING 88 MG/DL (70-100); POTASSIUM SERUM 3.9 MEQ/L (3.5-5.1); SALICYLATE LEVEL < 1.7 MG/DL (5.0-30.0); SODIUM LEVEL 138 MEQ/L (136-145); THYROID STIMULATING HORMONE 0.703 uIU/ML (0.358-3.740); TOTAL PROTEIN 6.8 GM/DL (6.4-8.2)
[2020-08-02 11:57] VITALS: BP 130/86
== END 2020-08-02 12:04 | disposition home or self-care (01) ==
LOC: M ED 09:17
DX: F10.10 Alcohol abuse, uncomplicated (principal); F32.9 Major depressive disorder, single episode, unspecified; Z91.5 Personal history of self-harm; Z79.899 Other long term (current) drug therapy; Z91.018 Allergy to other foods; E73.9 Lactose intolerance, unspecified

== ENCOUNTER 2020-08-06 08:26 | Inpatient (IN) | payer OTHER ==
[~2020-08-06] VITALS: Ht 182.9 cm; Wt 93.8 kg
[~2020-08-06 08:26] MED LIST: FLUO20CA22 PO; NALT50TA4 PO; PRAZ2CAP PO; TRAZ-252 PO
[2020-08-06] MEDS ORDERED: LORazepam 2 MG TAB PO PRN (08:55)
[2020-08-06] MEDS ORDERED: FOLIC ACID 1 MG TAB PO SCH (09:00)
[2020-08-06] MEDS ORDERED: THIAMINE 100 MG TAB PO SCH (09:00)
[2020-08-06] MEDS ORDERED: MULTIVITAMINS/MINERALS THERAP 1 TAB PO SCH (09:00)
[2020-08-06 09:33] LABS: HEMATOCRIT 45.1 % (42.0-52.0); HEMOGLOBIN 15.2 g/dl (13.5-17.5); MEAN CORPUSCULAR HEMOGLOBIN 31.9 pg (27.0-33.0); MEAN CORPUSCULAR HGB CONC 33.7 g/dl (32.0-36.5); MEAN CORPUSCULAR VOLUME 94.5 fl (80.0-96.0); PLATELET COUNT, AUTOMATED 388 10^3/uL (150-450); RED BLOOD COUNT 4.77 10^6/uL (4.30-6.10); WHITE BLOOD COUNT 8.6 10^3/uL (4.0-10.0)
[2020-08-06 09:55] LABS: AMPHETAMINES LEVEL URINE NEGATIVE (NEGATIVE); BARBITURATES URINE NEGATIVE (NEGATIVE); BENZODIAZEPINES URINE NEGATIVE (NEGATIVE); CANNABINOIDS URINE NEGATIVE (NEGATIVE); COCAINE METABOLITE URINE NEGATIVE (NEGATIVE); METHADONE URINE NEGATIVE (NEGATIVE); OPIATES URINE NEGATIVE (NEGATIVE); PHENCYCLIDINE URINE NEGATIVE (NEGATIVE)
[2020-08-06 10:11] LABS: ACETAMINOPHEN LEVEL < 2.0 UG/ML (10.0-30.0); ALBUMIN 4.2 GM/DL (3.2-5.2); ALT/SGPT 23 U/L (12-78); BILIRUBIN,DIRECT < 0.1 MG/DL (0.0-0.2); BILIRUBIN,TOTAL 0.2 MG/DL (0.2-1.0); BLOOD UREA NITROGEN 8 MG/DL (7-18); CALCIUM LEVEL 8.9 MG/DL (8.5-10.1); CARBON DIOXIDE LEVEL 29 MEQ/L (21-32); CHLORIDE LEVEL 107 MEQ/L (98-107); CREATININE FOR GFR 0.89 MG/DL (0.70-1.30); ETHYL ALCOHOL (ETHANOL) 0.245 % (0.000-0.010); GLOMERULAR FILTRATION RATE > 60.0 (>60); GLUCOSE, FASTING 87 MG/DL (70-100); POTASSIUM SERUM 4.2 MEQ/L (3.5-5.1); SALICYLATE LEVEL < 1.7 MG/DL (5.0-30.0); SODIUM LEVEL 141 MEQ/L (136-145); THYROID STIMULATING HORMONE 0.667 uIU/ML (0.358-3.740); TOTAL PROTEIN 7.4 GM/DL (6.4-8.2)
[2020-08-06 17:23] LABS: RSV AMPLIFICATION NEGATIVE (NEGATIVE)
[2020-08-06] MEDS ORDERED: MOM 30ML SUSPENSION UDC PO PRN (18:15)
[2020-08-06] MEDS ORDERED: MAALOX 30 ML SUSP *UDC PO PRN (18:15)
[2020-08-06] MEDS ORDERED: ACETAMINOPHEN TAB 650MG DOSE (2X325MG) PO PRN (18:15)
[2020-08-06 22:07] VITALS: BP 129/81
[2020-08-06] MEDS: traZODone 50 MG TAB PO PRN (23:13)
[2020-08-07 07:18] VITALS: BP 118/67
[2020-08-07] MEDS ORDERED: NALTREXONE 50 MG TAB PO SCH (09:00)
[2020-08-07] MEDS ORDERED: FLUoxetine 20 MG CAP PO SCH (09:00)
[2020-08-07] MEDS: THIAMINE 100 MG TAB PO SCH ×2 (09:12→21:45)
[2020-08-07] MEDS: MULTIVITAMINS/MINERALS THERAP 1 TAB PO SCH (09:12)
[2020-08-07] MEDS: FOLIC ACID 1 MG TAB PO SCH (09:12)
--- NOTE | 2020-08-07 11:23 | MHHPE ---
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 CHIEF COMPLAINT: "I have been depressed and I have suicidal thoughts." HISTORY OF PRESENT ILLNESS: Patient recently was discharged from alcohol rehabilitation from [place] a month ago. After he came, he relapsed, started drinking again. Currently depressed, describes his depression as symptoms like sleep disturbances, low energy, hopelessness, helplessness, loss of interest, and for the last 1 month the depression has worsened, he has suicidal thoughts. Patient has history of hypomanic episode which lasted a week. The symptoms were grandiosity, pressured speech, impulsivity, like getting into drugs, racing thoughts. The patient has a history of posttraumatic stress disorder (PTSD). He was in gangs where he saw people dying in front of him. He has dreams and flashbacks for which he has been treated with prazosin. Patient also complains of social phobia. Patient drinks alcohol, started drinking alcohol when he was 19, and has increasingly been drinking more and more. He drinks on an average about a 12-pack of beer and some whiskey. The last time he drank was 2 nights ago. Patient was in rehabilitation for about 8 weeks in [place]. PAST PSYCHIATRIC HISTORY: He was admitted to [facility] about 5-6 months ago. He was placed on Zoloft, however that was discontinued when he went to rehabilitation. He is currently on Prozac. SUICIDAL HISTORY: Attempted suicide twice, once in 2018, overdosing on pills, and 04/23/2021, he cut his wrists and he was admitted here. DRUG AND ALCOHOL USE: Alcohol use has been described, but denies any use of any other drugs. LEGAL HISTORY: Denies any errors, denies DUI. MEDICAL HISTORY: Denies medical problems. FAMILY HISTORY: His mother has a history of depression. His sister has depression also. PERSONAL HISTORY: He was born in [place], raised in [place]. He dropped out of school when he was 17 years old, in 10th grade, then he got a diploma. He has worked in construction. For the last about 7-8 months he is in the . He has not been deployed. There is no history of any abuse. MENTAL STATUS EXAMINATION: Casually dressed with clean clothes. Cooperative, made good eye contact. Mood is depressed, affect is constricted. Psychomotor activity is normal. Thought process: Linear, goal-directed. Thought content: Complains of some suicidal thoughts without plans. Denied any auditory or visual hallucinations. Insight and judgment are fair to poor. His memory immediate, remote, recent are good. VITAL SIGNS: Temperature 98.5, pulse is 77, respiratory rate is 16, blood pressure 118/67, pulse oximetry 99. LABORATORY DATA: CBC, CMP within normal limits. Toxicology was negative, but alcohol level was 0.245. REVIEW OF SYSTEMS: Constitutional: Denied night sweats or fever. Denied any headache, sore throat, epistaxis. Cardiovascular system (CVS): Denied any chest pain or palpitation. Respiratory system (RS): Denied shortness of breath or cough. Denied any abdominal pain or distention. Genitourinary: Denied dysuria, hematuria. Neurologic: Denied dizziness, giddiness. Musculoskeletal: Denied any joint pain. DIAGNOSES: Bipolar 2 disorder, most recent episode depressed. Alcohol use disorder. Posttraumatic stress disorder (PTSD). Social phobia. ASSESSMENT AND PLAN: Currently, patient is depressed with some vague suicidal thoughts without plan. Plan is to: 1. Admit to inpatient mental health unit (IMHU). 2. He will be seen by hospitalist for medical needs. 3. Patient will be kept on suicide precautions. 4. Patient will receive individual and group and milieu therapy. 5. Patient will attend activities. 6. He will be seen by protective services social worker and case management. 7. His medications: Patient is on: - prazosin 2 mg at night - trazodone 50 mg at night - Prozac 20 mg in the morning I would like to add Depakote ER 500 mg at night, titrate the dose. Estimated length of stay: 4-5 days. Time spent is 1 hour.
[2020-08-07 18:02] VITALS: BP 149/73
[2020-08-07] MEDS: NICOTINE 21MG/24HR 1 EA TRANSDERMAL TD SCH (18:38)
--- NOTE | 2020-08-07 20:09 | HPEPDOC ---
General Date of Admission Aug 06, 2020 at 18:14 Date of Service: Aug 07, 2020 Chief Complaint The patient is a 24-year-old male admitted with a reason for visit of Other Specified Depressive Disorder. Source: Patient Exam Limitations: No limitations History of Present Illness Patient is 24 years old male with past history of depression, PTSD, anxiety presented to the hospital with suicidal ideation. Patient recently was discharged from alcohol rehabilitation from [place] a month ago. After he came, he relapsed, started drinking again and he developed severe depression associated with suicidal ideation. Patient denied any physical problem. He denies fever, chest pain, chills, nausea, vomiting, diarrhea or dysuria Home Medications Scheduled Fluoxetine Hcl (Fluoxetine HCl) 20 Mg Capsule, 20 MG PO DAILY, (Reported) Naltrexone HCl (Naltrexone HCl) 50 Mg Tablet, 50 MG PO DAILY, (Reported) Prazosin Hcl (Prazosin HCl) 2 Mg Capsule, 2 MG PO QHS, (Reported) Scheduled PRN Trazodone HCl (Trazodone HCl) 50 Mg Tablet, 50 MG PO QHS PRN for SLEEP, (Reported) Allergies Coded Allergies: lactose (Verified Adverse Reaction, Mild, STOMACH PAIN, 04/23/20) gluten (Verified Adverse Reaction, Unknown, stomach pain, 04/23/20) Past Medical History Medical History depression, PTSD, anxiety Social History * Smoker: current smoker Alcohol: heavy Drugs: denies A-FIB/CHADSVASC A-FIB History Current/History of A-Fib/PAF?: No Current PO Anticoag Therapy: No Review of Systems Constitutional: Denies: Chills, Fever Eyes: Denies: Pain ENT: Denies: Head Aches Skin: Denies: Rash, Lesions Pulmonary: Denies: Dyspnea Cardiovascular: Denies: Chest Pain Gastrointestinal: Denies: Nausea, Vomiting Genitourinary: Denies: Dysuria Hematologic: Denies: Bruising Endocrine: Denies: Polydipsia Musculoskeletal: Denies: Neck Pain Neurological: Denies: Weakness Psych: Reports: Anxiety, Depression Physical Examination General Exam: Positive: Alert, Cooperative Eye Exam: Positive: PERRLA ENT Exam: Positive: Atraumatic Neck Exam: Positive: Supple; Negative: JVD Chest Exam: Positive: Clear to auscultation Heart Exam: Positive: Rate Normal Telemetry: Positive: No significant arrhythmia Abdomen Exam: Positive: Normal bowel sounds Extremity Exam: Negative: Clubbing Skin Exam: Positive: Nl turgor and temperature Neuro Exam: Positive: Normal Gait Psych Exam: Positive: Anxiety, Oriented x 3 Vital Signs Vital Signs Date Time Temp Pulse Resp B/P (MAP) Pulse Ox O2 Delivery O2 Flow Rate FiO2 08/07/20 18:02 97.0 93 14 149/73 (98) 08/07/20 07:18 99 Room Air Assessment/Plan Patient is 24 years old male with past history of depression, PTSD, anxiety presented to the hospital with suicidal ideation. Patient recently was discharged from alcohol rehabilitation from [place] a month ago. After he came, he relapsed, started drinking again and he developed severe depression associated with suicidal ideation. Patient denied any physical problem. He denies fever, chest pain, chills, nausea, vomiting, diarrhea or dysuria Problems (1) Alcohol dependence Status: Acute Problem Text: Deferred treatment to psych team (2) Depression Status: Chronic Problem Text: Deferred treatment to psych team (3) Suicidal ideation Status: Acute Problem Text: Deferred treatment to psych team Plan / VTE VTE Prophylaxis Ordered?: No VTE Exclusion Mechanical Proph: Low Risk for VTE LISSY RIVAS DO Aug 07, 2020 20:09
[2020-08-07] MEDS: traZODone 50 MG TAB PO PRN (21:45)
[2020-08-07] MEDS: DIVALPROEX 500MG *ER* TAB PO SCH (21:45)
[2020-08-08 06:00] VITALS: BP 128/65
[2020-08-08] MEDS: MULTIVITAMINS/MINERALS THERAP 1 TAB PO SCH (08:52)
[2020-08-08] MEDS: THIAMINE 100 MG TAB PO SCH ×2 (08:52→21:49)
[2020-08-08] MEDS: FOLIC ACID 1 MG TAB PO SCH (08:52)
[2020-08-08] MEDS ORDERED: FLUoxetine 20 MG CAP PO SCH (09:00)
[2020-08-08] MEDS: NICOTINE 21MG/24HR 1 EA TRANSDERMAL TD SCH (09:00)
[2020-08-08] MEDS ORDERED: NALTREXONE 50 MG TAB PO SCH (09:00)
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
[2020-08-08 17:55] VITALS: BP 137/64
[2020-08-08] MEDS ORDERED: PRAZOSIN 1 MG CAP PO SCH (21:00)
[2020-08-08] MEDS: DIVALPROEX 500MG *ER* TAB PO SCH (21:49)
[2020-08-08] MEDS: traZODone 50 MG TAB PO PRN (23:03)
[2020-08-09 06:33] VITALS: BP 116/57
[2020-08-09] MEDS: THIAMINE 100 MG TAB PO SCH ×2 (08:09→21:44)
[2020-08-09] MEDS: MULTIVITAMINS/MINERALS THERAP 1 TAB PO SCH (08:09)
[2020-08-09] MEDS: FOLIC ACID 1 MG TAB PO SCH (08:09)
[2020-08-09] MEDS: NICOTINE 21MG/24HR 1 EA TRANSDERMAL TD SCH (08:10)
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
[2020-08-09] MEDS: NALTREXONE 50 MG TAB PO SCH (13:04)
[2020-08-09] MEDS: FLUoxetine 20 MG CAP PO SCH (13:04)
[2020-08-09 16:15] VITALS: BP 118/82
[2020-08-09] MEDS: DIVALPROEX 500MG *ER* TAB PO SCH (21:42)
[2020-08-09] MEDS: PRAZOSIN 1 MG CAP PO SCH (21:44)
[2020-08-09] MEDS: traZODone 50 MG TAB PO PRN (23:03)
[2020-08-10 06:40] VITALS: BP 105/57
[2020-08-10] MEDS: FLUoxetine 20 MG CAP PO SCH (08:43)
[2020-08-10] MEDS: THIAMINE 100 MG TAB PO SCH ×2 (08:43→21:48)
[2020-08-10] MEDS: NALTREXONE 50 MG TAB PO SCH (08:43)
[2020-08-10] MEDS: FOLIC ACID 1 MG TAB PO SCH (08:43)
[2020-08-10] MEDS: MULTIVITAMINS/MINERALS THERAP 1 TAB PO SCH (08:44)
[2020-08-10] MEDS: NICOTINE 21MG/24HR 1 EA TRANSDERMAL TD SCH (08:44)
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
[2020-08-10 19:51] VITALS: BP 140/65
[2020-08-10] MEDS: DIVALPROEX 500MG *ER* TAB PO SCH (21:48)
[2020-08-10] MEDS: PRAZOSIN 1 MG CAP PO SCH (21:48)
[2020-08-10] MEDS: traZODone 50 MG TAB PO PRN (23:21)
[2020-08-11 08:08] VITALS: BP 118/66
[2020-08-11] MEDS: MULTIVITAMINS/MINERALS THERAP 1 TAB PO SCH (09:15)
[2020-08-11] MEDS: THIAMINE 100 MG TAB PO SCH ×2 (09:15→21:56)
[2020-08-11] MEDS: FOLIC ACID 1 MG TAB PO SCH (09:15)
[2020-08-11] MEDS: FLUoxetine 20 MG CAP PO SCH (09:15)
[2020-08-11] MEDS: NALTREXONE 50 MG TAB PO SCH (09:16)
[2020-08-11] MEDS: NICOTINE 21MG/24HR 1 EA TRANSDERMAL TD SCH (09:16)
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
[2020-08-11 16:50] VITALS: BP 140/68
[2020-08-11] MEDS: DIVALPROEX 500MG *ER* TAB PO SCH (21:56)
[2020-08-11] MEDS: PRAZOSIN 1 MG CAP PO SCH (22:00)
[2020-08-11] MEDS: traZODone 50 MG TAB PO PRN (23:59)
[2020-08-12 06:00] VITALS: BP 115/71
[2020-08-12] MEDS: FOLIC ACID 1 MG TAB PO SCH (09:00)
[2020-08-12] MEDS: FLUoxetine 20 MG CAP PO SCH (09:01)
[2020-08-12] MEDS: THIAMINE 100 MG TAB PO SCH ×2 (09:01→21:43)
[2020-08-12] MEDS: MULTIVITAMINS/MINERALS THERAP 1 TAB PO SCH (09:01)
[2020-08-12] MEDS: NICOTINE 21MG/24HR 1 EA TRANSDERMAL TD SCH (09:01)
[2020-08-12] MEDS: NALTREXONE 50 MG TAB PO SCH (09:01)
[2020-08-12 19:16] VITALS: BP 155/80
[2020-08-12 21:43] VITALS: BP 146/82
[2020-08-12] MEDS: PRAZOSIN 1 MG CAP PO SCH (21:43)
[2020-08-12] MEDS: DIVALPROEX 500MG *ER* TAB PO SCH (21:44)
[2020-08-12] MEDS: traZODone 50 MG TAB PO PRN (23:01)
[2020-08-13 06:34] VITALS: BP 117/63
[2020-08-13] MEDS ORDERED: DEPA500T2 PO (09:03)
[2020-08-13] MEDS: FOLIC ACID 1 MG TAB PO SCH (09:31)
[2020-08-13] MEDS: THIAMINE 100 MG TAB PO SCH (09:31)
[2020-08-13] MEDS: FLUoxetine 20 MG CAP PO SCH (09:32)
[2020-08-13] MEDS: MULTIVITAMINS/MINERALS THERAP 1 TAB PO SCH (09:32)
[2020-08-13] MEDS: NICOTINE 21MG/24HR 1 EA TRANSDERMAL TD SCH (09:32)
[2020-08-13] MEDS: NALTREXONE 50 MG TAB PO SCH (09:32)
--- NOTE | 2020-08-13 11:33 | MHDS ---
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 For history of present illness (HPI), past psychiatric history, personal history, please refer to the initial evaluation. COURSE IN THE HOSPITAL: Patient initially was depressed, very isolative. He was placed on prazosin 2 mg at night, trazodone 50 mg at night, Prozac 20 mg once daily and Depakote 500 mg at night. He made gradual recovery. He started interacting with peers and staff. His suicidal thoughts resolved. Denied any side effects of the medications. Interacted better with peers. He was stable at the time of discharge. MENTAL STATUS EXAMINATION: Casually dressed, cooperative. Made good eye contact. Psychomotor activity is normal. Mood is euthymic. Affect is appropriate. Denied auditory or visual hallucinations. Denied suicidal or homicidal ideas. Memory: Immediate, remote, recent are good. His attention is good. DIAGNOSES: 1. Major depressive disorder. 2. Posttraumatic stress disorder (PTSD). 3. Alcohol use disorder. 4. Social phobia. DISCHARGE MEDICATIONS: - prazosin 2 mg at night - fluoxetine 20 mg once daily - Depakote 500 mg at night - naltrexone 50 mg daily DISCHARGE INSTRUCTIONS: Patient will be discharged home at [place], will be followed up by [facility]. TIME SPENT: Less than 30 minutes.
[2021-08-07] MEDS ORDERED: FLUoxetine 20 MG CAP PO SCH (09:00)
[2021-08-07] MEDS ORDERED: NALTREXONE 50 MG TAB PO SCH (09:00)
[2021-08-07] MEDS ORDERED: PRAZOSIN 1 MG CAP PO SCH (21:00)
== END 2020-08-13 12:45 | disposition home or self-care (01) | DRG 881 ==
LOC: M ED 08:26 → M ED INP 18:14 → M PSY 22:03
PROVIDERS: ADMIT Psychiatry & Neurology Psychiatry; ATTEND Psychiatry & Neurology Psychiatry
DX: F32.9 Major depressive disorder, single episode, unspecified (principal); R45.851 Suicidal ideations; F43.10 Post-traumatic stress disorder, unspecified; F10.20 Alcohol dependence, uncomplicated; F40.10 Social phobia, unspecified; Z79.899 Other long term (current) drug therapy; E73.9 Lactose intolerance, unspecified; E74.39 Other disorders of intestinal carbohydrate absorption

== ENCOUNTER 2020-08-30 08:57 | Emergency (ER) | payer OTHER ==
[~2020-08-30] VITALS: Ht 182.9 cm; Wt 95.5 kg
[~2020-08-30 08:57] MED LIST changes: +DEPA500T2 PO
[2020-08-30] MEDS ORDERED: NS 1,000 ML IV ONE (09:20)
[2020-08-30 10:10] LABS: BASO # 0.1 10^3/uL (0.0-0.2); BASO % 0.9 % (0.0-1.0); EOS # 0.3 10^3/uL (0.0-0.5); EOS % 3.7 % (0.0-3.0); HEMATOCRIT 40.2 % (42.0-52.0); HEMOGLOBIN 13.7 g/dl (13.5-17.5); LYMPH # 3.2 10^3/uL (1.5-5.0); LYMPH % 39.3 % (24.0-44.0); MEAN CORPUSCULAR HEMOGLOBIN 31.9 pg (27.0-33.0); MEAN CORPUSCULAR HGB CONC 34.1 g/dl (32.0-36.5); MEAN CORPUSCULAR VOLUME 93.7 fl (80.0-96.0); MONO # 0.6 10^3/uL (0.0-0.8); MONO % 7.7 % (2.0-8.0); NEUTROPHILS # 3.9 10^3/uL (1.5-8.5); NEUTROPHILS % 48.2 % (36.0-66.0); PLATELET COUNT, AUTOMATED 414 10^3/uL (150-450); RED BLOOD COUNT 4.29 10^6/uL (4.30-6.10); WHITE BLOOD COUNT 8.1 10^3/uL (4.0-10.0)
[2020-08-30 10:12] LABS: APPEARANCE, URINE CLEAR (CLEAR); BACTERIA, URINE AUTO NEGATIVE (NEGATIVE); BILIRUBIN, URINE AUTO NEGATIVE (NEGATIVE); BLOOD, URINE BLOOD NEGATIVE (NEGATIVE); COLOR, URINE STRAW (YELLOW); GLUCOSE, URINE (UA) AUTO NEGATIVE (NEGATIVE); KETONE, URINE AUTO NEGATIVE (NEGATIVE); LEUKOCYTE ESTERASE, URINE AUTO NEGATIVE (NEGATIVE); NITRITE, URINE AUTO NEGATIVE (NEGATIVE); PROTEIN, URINE AUTO NEGATIVE (NEGATIVE); RBC, URINE AUTO 0 /HPF (0-3); SPECIFIC GRAVITY URINE AUTO 1.008 (1.002-1.035); SQUAMOUS EPITHELIAL CELL UR AU 0 /HPF (0-6); UROBILINOGEN, URINE AUTO 0.2 mg/dL (0.0-2.0); WBC, URINE AUTO 1 /HPF (0-3)
[2020-08-30 10:39] LABS: AMPHETAMINES LEVEL URINE NEGATIVE (NEGATIVE); BARBITURATES URINE NEGATIVE (NEGATIVE); BENZODIAZEPINES URINE NEGATIVE (NEGATIVE); CANNABINOIDS URINE NEGATIVE (NEGATIVE); COCAINE METABOLITE URINE NEGATIVE (NEGATIVE); METHADONE URINE NEGATIVE (NEGATIVE); OPIATES URINE NEGATIVE (NEGATIVE); PHENCYCLIDINE URINE NEGATIVE (NEGATIVE)
[2020-08-30 10:42] LABS: ACETAMINOPHEN LEVEL < 2.0 UG/ML (10.0-30.0); ALBUMIN 3.9 GM/DL (3.2-5.2); ALT/SGPT 22 U/L (12-78); BILIRUBIN,DIRECT 0.1 MG/DL (0.0-0.2); BILIRUBIN,TOTAL 0.3 MG/DL (0.2-1.0); BLOOD UREA NITROGEN 13 MG/DL (7-18); CALCIUM LEVEL 9.2 MG/DL (8.5-10.1); CARBON DIOXIDE LEVEL 26 MEQ/L (21-32); CHLORIDE LEVEL 108 MEQ/L (98-107); ETHYL ALCOHOL (ETHANOL) 0.231 % (0.000-0.010); GLOMERULAR FILTRATION RATE > 60.0 (>60); GLUCOSE, FASTING 93 MG/DL (70-100); POTASSIUM SERUM 4.1 MEQ/L (3.5-5.1); SALICYLATE LEVEL < 1.7 MG/DL (5.0-30.0); SODIUM LEVEL 139 MEQ/L (136-145); TOTAL PROTEIN 6.9 GM/DL (6.4-8.2)
[2020-08-30 15:49] VITALS: BP 122/69
== END 2020-08-30 16:54 | disposition home or self-care (01) ==
LOC: M ED 08:57 → EDBD 08:57 → M ED 16:54
DX: F10.129 Alcohol abuse with intoxication, unspecified (principal); Z79.899 Other long term (current) drug therapy; E73.9 Lactose intolerance, unspecified; Z91.018 Allergy to other foods